=== PATIENT | female | born 1980 | race Two or more races ===

== ENCOUNTER 2020-12-25 10:53 | Emergency (ER) | payer OTHER ==
[~2020-12-25] VITALS: Ht 154.9 cm; Wt 59.9 kg
[2020-12-25] MEDS ORDERED: CLONAZEPAM1 M1 PO (11:17)
[2020-12-25] MEDS ORDERED: RESTORIL30 MG PO (11:18)
[2020-12-25] MEDS ORDERED: WELLBUTRIN SR100 MG PO (11:18)
== END 2020-12-25 15:06 | disposition home or self-care (01) ==
LOC: ER 10:53
DX: R42 Dizziness and giddiness (principal)

== ENCOUNTER 2022-09-30 12:55 | Emergency (ER) | payer OTHER ==
[~2022-09-30] VITALS: Ht 154.9 cm; Wt 63.5 kg
[~2022-09-30 12:55] MED LIST: CLONAZEPAM1 M1 PO; RESTORIL30 MG PO; WELLBUTRIN SR100 MG PO
[2022-09-30] MEDS ORDERED: SEROQUEL XR50 MG PO (13:20)
[2022-09-30] MEDS ORDERED: KETO10TA2 PO (15:10)
== END 2022-09-30 15:37 | disposition home or self-care (01) ==
LOC: ER 12:55
DX: M12.572 Traumatic arthropathy, left ankle and foot (principal)